=== PATIENT | female | born 1945 | race Caucasian/White ===

== ENCOUNTER 2023-06-12 10:29 | Emergency (ER) | payer OTHER ==
[~2023-06-12] VITALS: Ht 157.5 cm; Wt 69.4 kg
[2023-06-12 10:42] VITALS: BP_SYST 120; PULSE 111; RESP 18; TEMP 98.3; O2SAT 96
[2023-06-12] MEDS ORDERED: KETOROLAC TROMETHAMINE 15 MG VIAL IM ONE (11:00)
[2023-06-12 11:26] LABS: BILIRUBIN,URINE NEGATIVE (NEGATIVE); BLOOD, URINE NEGATIVE (NEGATIVE); CLARITY/URINE CLEAR (CLEAR); COLOR,URINE YELLOW (YELLOW); GLUCOSE,URINE NEGATIVE (NEGATIVE); KETONES,URINE NEGATIVE (NEGATIVE); LEUKOCYTE ESTERASE ,URINE TRACE (NEGATIVE); NITRITE, URINE NEGATIVE (NEGATIVE); PH,URINE 7.5 (5.0-8.0); PROTEIN URINE NEGATIVE (NEGATIVE); UROBILINOGEN,URINE 0.2 (0.2-1.0)
[2023-06-12 12:01] LABS: BACTERIA,URINE None Seen /HPF (None Seen); RBC,URINE NONE SEEN /HPF (0-3)
[2023-06-12 13:59] VITALS: BP_SYST 134; PULSE 84; RESP 18; TEMP 98.3; O2SAT 98
== END 2023-06-12 13:08 | disposition home or self-care (01) ==
LOC: SED 10:29
DX: M54.30 Sciatica, unspecified side (principal); M43.16 Spondylolisthesis, lumbar region; M79.662 Pain in left lower leg; Z79.899 Other long term (current) drug therapy
CPT/HCPCS: 99285; 93971; 81001; 72100; 96372; 81000; 81015; J1885